=== PATIENT | female | born 1955 | race Caucasian/White ===

== ENCOUNTER 2024-06-16 06:56 | Day surgery (SDC) | payer BC ==
[~2024-06-16] VITALS: Ht 154.9 cm; Wt 88.4 kg
[2024-06-16] VITALS (16 sets, daily range): BP systolic 118–148; BP diastolic 58–86
[~2024-06-16 06:56] MED LIST: ASPI81CH PO; Aspir 8181 MG PO; Bupivacaine 0.5% Inj 10 ML Vial ONE; COQ-10100 MG; COQ1050 MG PO; Dexamethasone Sod Phos 10 MG/ML 1ML VIAL ONE; Dexmedetomidine HCL 200 MCG / 2 ML ONE; Ketorolac Tromethamine 30mg Vial ONE; METO25ER PO; Ondansetron HCl 2 MG / ML 2ML Vial ONE; RAMI5 PO; ZOCOR20 MG PO; propofoL 20 ML IV ONE; propofoL 50 ML IV ONE
[2024-06-16] MEDS ORDERED: Acetaminophen 500 MG Tab PO SCH ×2 (07:10→16:00)
[2024-06-16] MEDS ORDERED: Chlorhexidine Mouth Care 15 ML UDC MT SCH (07:10)
[2024-06-16] MEDS ORDERED: Ropivacaine 0.5% HCl/Pf 123.125 MG,EPINEPHrine HCL 0.25 MG,Ketorolac Tromethamine 15 MG... INFIL SCH (07:10)
[2024-06-16] MEDS ORDERED: CeFAZolin Sodium 2,000 MG in NS 100 ML IV SCH ×2 (07:10→16:00)
[2024-06-16] MEDS ORDERED: Tranexamic Acid 100 ML IV SCH (07:10)
[2024-06-16] MEDS ORDERED: OxyCODONE HCL 10 MG TABCR PO SCH (07:10)
[2024-06-16] MEDS ORDERED: Lactated Ringer's 1,000 ML IV SCH ×2 (07:10→09:40)
[2024-06-16] MEDS ORDERED: Phenylephrine HCl 100 MCG/ML-NS 10MLSYR (1MG/10ML) ONE (07:50)
--- NOTE | 2024-06-16 07:56 | NUR ---
Ambulatory in Day Surgery. History, Chart, Medications and Allergies reviewed before start of procedure. Lungs clear T/O to Auscultation. Patient confirms NPO status and agrees with scheduled surgery. Pre-Op teaching done. Pt verbalizes understanding. PT BELONGINGS PLACED UNDERNEATH GURNEY FOR SAFEKEEPING. PT SPOUSE AT BEDSIDE.
[2024-06-16] MEDS ORDERED: FentaNYL Citrate 50 MCG/ML 2 ML Injection ONE (08:03)
[2024-06-16] MEDS ORDERED: HYDROmorphone HCl/Pf 1MG SYR IV PRN (08:15)
[2024-06-16] MEDS ORDERED: DiphenhydrAMINE HCL 25 MG Cap PO PRN (08:15)
[2024-06-16] MEDS ORDERED: Ondansetron HCl 2 MG / ML 2ML Vial IV PRN (08:15)
[2024-06-16] MEDS ORDERED: Metoclopramide HCl 5MG / ML 2ML Vial IV PRN (08:15)
[2024-06-16] MEDS ORDERED: OxyCODONE HCL 5 MG TAB PO PRN ×2 (08:20)
[2024-06-16] MEDS ORDERED: Magnesium Hydroxide Conc 10 ML UDC PO PRN (08:20)
[2024-06-16] MEDS ORDERED: Promethazine HCl 25 MG Tab PO PRN (08:20)
[2024-06-16] MEDS ORDERED: Bisacodyl 10 MG Supp PR PRN (08:20)
[2024-06-16] MEDS ORDERED: Docusate Sodium 100 MG Cap PO SCH (09:00)
[2024-06-16] MEDS ORDERED: ePHEDrine Sulfate 50 MG/ML 1ML Injection ONE (09:06)
[2024-06-16] MEDS ORDERED: Ketorolac Tromethamine 15mg Vial IV SCH (12:00)
[2024-06-16] MEDS ORDERED: ACET500 PO (14:18)
[2024-06-16] MEDS ORDERED: DOCU100 PO (14:19)
[2024-06-16] MEDS ORDERED: OXYC5 PO (14:27)
--- NOTE | 2024-06-16 17:00 | NUR ---
DISCHARGE SUMMARY PT HAS DONE WELL POST-OP. TOLERATES EATING, DRINKING, AND VOIDED. ABLE TO AMBULATE SBA WITH WALKER AND GB. WORKED WITH THERAPY. PAIN WELL CONTROLLED. AQUACEL DRESSING CHANGED DUE TO MINIMAL DISCHARGE. EXTRA DRESSINGS SENT HOME WITH PT. ESCORTED OUT VIA WC.
[2024-06-16] MEDS ORDERED: Lisinopril 10 MG Tab PO SCH (18:00)
[2024-06-16] MEDS ORDERED: Metoprolol Succinate 25 MG TABCR PO SCH (18:00)
[2024-06-16] MEDS ORDERED: Atorvastatin 10 MG Tab PO SCH (21:00)
[2024-06-17] MEDS ORDERED: Aspirin 81 MG Chew PO SCH (09:00)
== END 2024-06-16 17:05 | disposition home or self-care (01) ==
LOC: ORSCMMR 06:56 → ORD 08:30 → SURS 11:00 → ORSCMMR 17:05
PROVIDERS: Orthopaedic Surgery
PROC: 0SRC0JA Replacement of Right Knee Joint with Synthetic Substitute, Uncemented, Open Approach (ICD-10-PCS; principal; 2024-06-16 08:30)
DX: M17.11 Unilateral primary osteoarthritis, right knee (principal); I10 Essential (primary) hypertension; E78.5 Hyperlipidemia, unspecified; I25.10 Atherosclerotic heart disease of native coronary artery without angina pectoris; I25.2 Old myocardial infarction; G47.33 Obstructive sleep apnea (adult) (pediatric); E66.9 Obesity, unspecified; Z68.36 Body mass index [BMI] 36.0-36.9, adult; Z79.899 Other long term (current) drug therapy; Z79.82 Long term (current) use of aspirin
CPT/HCPCS: 73560-RT; 97110; 97116; 97162; A9270; C1713; C1776; C1887; J0171; J0690; J0735; J1100; J1885; J2371; J2405; J2704; J2795; J3010; J7120